=== PATIENT | female | born 1940 | race Caucasian/White ===

== ENCOUNTER 2020-03-29 06:08 | Outpatient (CLI) | payer MEDICARE, OTHER ==
[~2020-03-29] VITALS: Ht 160 cm; Wt 77.2 kg
== END 2020-03-30 10:01 | disposition home or self-care (01) ==
LOC: PREOP 06:08
PROVIDERS: ATTEND Specialist
DX: Z01.818 Encounter for other preprocedural examination (principal)

== ENCOUNTER 2020-03-31 07:42 | Day surgery (SDC) | payer MEDICARE, OTHER ==
[~2020-03-31] VITALS: Ht 160 cm; Wt 77.2 kg
[2020-03-31 08:05] VITALS: BP 174/106
[2020-03-31] MEDS: TETRACAINE 0.5% OPHTH SOLN 4 ML BTL (SINGLE DOSE ONLY) OU PRN ×4 (08:13→08:40)
[2020-03-31] MEDS ORDERED: POVIDONE (BETADINE) OPHTH SOLN 5% 30 ML OP ONE (08:15)
[2020-03-31] MEDS ORDERED: MOXIFLOXACIN OPHTH SOLN 5 MG/ML 0.3 ML SYRINGE OP ONE (08:15)
[2020-03-31] MEDS ORDERED: TIMOLOL MALEATE 0.5% 5 ML (TIMOPTIC) BTL OU PRN (08:15)
[2020-03-31] MEDS ORDERED: LIDOCAINE PF 1% 2 ML VIAL IR PRN (08:15)
[2020-03-31] MEDS: PHENYLEPHRINE 10% OPHTH (NEO-SYN) 5 ML BTL OU SCH ×3 (08:23→08:40)
[2020-03-31] MEDS: CYCLOPENTOLATE 1% (CYCLOGYL) 2 ML DROPS OP SCH ×3 (08:23→08:40)
[2020-03-31] MEDS ORDERED: MIDAZOLAM 2 MG/2 ML (VERSED) VIAL ONE (08:57)
--- NOTE | 2020-03-31 09:09 | Ophthalmologist Pre-Op Note ---
Pre-Operative Progress Note H&P Reviewed The H&P was reviewed, patient examined and no changes noted. Date H&P Reviewed: Mar 31, 2020 Time H&P Reviewed: 09:09 Pre-Op Dx Cataract, Left Eye TERESE JESUS MD Mar 31, 2020 09:09
[2020-03-31] MEDS ORDERED: acetaZOLAMIDE ER 500 MG CAP (DIAMOX SEQUELS) PO ONE (09:30)
--- NOTE | 2020-03-31 09:36 | Ophthalmology Operative Report ---
Cataract removal/placement IOL PREOPERATIVE DIAGNOSIS: Cataract Left Eye POSTOPERATIVE DIAGNOSIS: Cataract Left Eye PROCEDURE: Cataract removal and placement of posterior chamber implant, left eye SURGEON: Nathaniel Jesus ANESTHESIA: Topical with sedation COMPLICATIONS: None ESTIMATED BLOOD LOSS: Minimal DESCRIPTION OF PROCEDURE: After proper informed consent was obtained, the patient, a 79 female, was taken to the Operating Room and the left eye was anesthetized with tetracaine. The left eye was then prepped and draped in the usual manner. A wire lid speculum was placed. A paracentesis was made at the left hand position. Preservative free lidocaine was injected into the anterior chamber followed by viscoelastic. A clear corneal incision was made in the temporal position. A capsulorrhexis was preformed and the central nuclear and cortical material were removed. The posterior capsule was polished and an Kaleb 24.0 AU00T0 was placed into the capsular bag. The residual viscoelastic was aspirated and balanced saline solution was injected into the anterior chamber. Moxifloxacin was injected into the anterior chamber. The wound was checked and found to be water tight. The patient tolerated the procedure well without complications. NATHANIEL JESUS MD Mar 31, 2020 09:36
[2020-03-31 09:45] VITALS: BP 162/67
--- NOTE | 2020-03-31 14:26 | Anesthesia-General Post-Op ---
MAC Patient Condition Mental Status/LOC: Same as Preop Cardiovascular: Satisfactory Nausea/Vomiting: Absent Respiratory: Satisfactory Pain: Controlled Complications: Absent Post Op Complications Complications None Follow Up Care/Instructions Patient Instructions None needed. Anesthesiology Discharge Order Discharge Order Patient was seen this morning after the procedure and she was doing well, no complaints, stable vital signs, no apparent adverse anesthesia problems. SHARAN GUEVARA DO Mar 31, 2020 14:26
== END 2020-03-31 09:45 | disposition home or self-care (01) ==
LOC: SDC 07:42
PROVIDERS: ATTEND Specialist
DX: H25.12 Age-related nuclear cataract, left eye (principal); Z80.1 Family history of malignant neoplasm of trachea, bronchus and lung; Z90.710 Acquired absence of both cervix and uterus

== ENCOUNTER 2020-04-05 05:44 | Outpatient (CLI) | payer MEDICARE, OTHER | END 2020-04-05 12:44 | LOC: PREOP 05:44 | PROVIDERS: ATTEND Specialist | DX: Z01.818 Encounter for other preprocedural examination (principal) ==

== ENCOUNTER 2020-04-07 08:00 | Day surgery (SDC) | payer MEDICARE, OTHER ==
[~2020-04-07] VITALS: Ht 160 cm; Wt 77.3 kg
[2020-04-07 08:12] VITALS: BP 162/68
[2020-04-07] MEDS ORDERED: POVIDONE (BETADINE) OPHTH SOLN 5% 30 ML OP ONE (08:15)
[2020-04-07] MEDS ORDERED: MOXIFLOXACIN OPHTH SOLN 5 MG/ML 0.3 ML SYRINGE OP ONE (08:15)
[2020-04-07] MEDS ORDERED: TIMOLOL MALEATE 0.5% 5 ML (TIMOPTIC) BTL OU PRN (08:15)
[2020-04-07] MEDS ORDERED: LIDOCAINE PF 1% 2 ML VIAL IR PRN (08:15)
[2020-04-07] MEDS: TETRACAINE 0.5% OPHTH SOLN 4 ML BTL (SINGLE DOSE ONLY) OU PRN ×4 (08:21→08:37)
[2020-04-07] MEDS: PHENYLEPHRINE 10% OPHTH (NEO-SYN) 5 ML BTL OU SCH ×3 (08:27→08:37)
[2020-04-07] MEDS: CYCLOPENTOLATE 1% (CYCLOGYL) 2 ML DROPS OP SCH ×3 (08:27→08:37)
--- NOTE | 2020-04-07 09:03 | Ophthalmologist Pre-Op Note ---
Pre-Operative Progress Note H&P Reviewed The H&P was reviewed, patient examined and no changes noted. Date H&P Reviewed: Apr 07, 2020 Time H&P Reviewed: 09:03 Pre-Op Dx Cataract, Right Eye TERESE JESUS MD Apr 07, 2020 09:03
[2020-04-07] MEDS ORDERED: MIDAZOLAM 2 MG/2 ML (VERSED) VIAL ONE (09:05)
--- NOTE | 2020-04-07 09:25 | Ophthalmology Operative Report ---
Cataract removal/placement IOL PREOPERATIVE DIAGNOSIS: Cataract Right Eye POSTOPERATIVE DIAGNOSIS: Cataract Right Eye PROCEDURE: Cataract removal and placement of posterior chamber implant, right eye SURGEON: Nathaniel Jesus ANESTHESIA: Topical with sedation COMPLICATIONS: None ESTIMATED BLOOD LOSS: Minimal DESCRIPTION OF PROCEDURE: After proper informed consent was obtained, the patient, a 79 female, was taken to the Operating Room and the right eye was anesthetized with tetracaine. The right eye was then prepped and draped in the usual manner. A wire lid speculum was placed. A paracentesis was made at the left hand position. Preservative free lidocaine was injected into the anterior chamber followed by viscoelastic. A clear corneal incision was made in the temporal position. A capsulorrhexis was preformed and the central nuclear and cortical material were removed. The posterior capsule was polished and Kaleb 23.5 AU00T0 IOL was placed into the capsular bag. The residual viscoelastic was aspirated and balanced saline solution was injected into the anterior chamber. Moxifloxacin was injected into the anterior chamber. The wound was checked and found to be water tight. The patient tolerated the procedure well without complications. NATHANIEL JESUS MD Apr 07, 2020 09:25
[2020-04-07] MEDS ORDERED: acetaZOLAMIDE ER 500 MG CAP (DIAMOX SEQUELS) PO ONE (09:30)
[2020-04-07 09:35] VITALS: BP 169/69
--- NOTE | 2020-04-07 10:46 | Anesthesia-General Post-Op ---
MAC Patient Condition Mental Status/LOC: Same as Preop Cardiovascular: Satisfactory Nausea/Vomiting: Absent Respiratory: Satisfactory Pain: Controlled Complications: Absent Post Op Complications Complications None Follow Up Care/Instructions Patient Instructions None needed. Anesthesiology Discharge Order Discharge Order Patient is doing well, no complaints, stable vital signs, no apparent adverse anesthesia problems. No complications reported per nursing. CAMERON FOSTER CRNA Apr 07, 2020 10:46
== END 2020-04-07 09:40 | disposition home or self-care (01) ==
LOC: SDC 08:00
PROVIDERS: ATTEND Specialist
DX: H25.11 Age-related nuclear cataract, right eye (principal)
CPT/HCPCS: 66984; V2632

== ENCOUNTER 2020-04-10 10:05 | Emergency (ER) | payer MEDICARE, OTHER ==
[~2020-04-10] VITALS: Ht 160 cm; Wt 74.8 kg
[2020-04-10 10:20] VITALS: BP 144/66
[2020-04-10] MEDS ORDERED: PRD20T PO (10:46)
--- NOTE | 2020-04-10 10:46 | ED Integumentary General ---
General Chief Complaint: Skin/Wound Problems Stated Complaint: POISON GERDA Source: patient Exam Limitations: no limitations History of Present Illness Date Seen by Provider: Apr 10, 2020 Time Seen by Provider: 10:30 Initial Comments The patient since ER by private conveyance with chief complaint since Friday, 2 days ago she started having some itching poison gerda on her right neck face and oriental orthodox. She is not having any involvement and her tongue throat or difficulty breathing or swallowing secretions. She has not started anything except for topicals. Allergies and Home Medications Allergies Coded Allergies: No Known Drug Allergies (Unverified , 03/30/20) Home Medications No Active Prescriptions or Reported Meds Patient Home Medication List Home Medication List Reviewed: Yes Review of Systems Review of Systems Constitutional: No chills, No diaphoresis EENTM: No ear discharge, No ear pain Respiratory: No cough, No short of breath Cardiovascular: No chest pain, No edema Gastrointestinal: No abdominal pain, No nausea, No vomiting Genitourinary: No discharge, No dysuria Musculoskeletal: No back pain, No joint pain Skin: see HPI All Other Systems Reviewed Negative Unless Noted: Yes Past Bsevikq-Rtlsic-Kgiklp Hx Patient Social History Alcohol Use: Denies Use Recreational Drug Use: No Smoking Status: Never a Smoker Physical Exam Vital Signs Capillary Refill : General Appearance: WD/WN, no apparent distress HEENT: PERRL/EOMI, TMs normal, other (pinna is mildly erythematous and involved. Canal not involved.) Neck: non-tender, full range of motion, supple, normal inspection Cardiovascular: normal peripheral pulses, regular rate, rhythm Skin: rash (erythematous, pruritic rash over the right anterior neck or jawline and oriental orthodox) Progress/Results/Core Measures Progress Progress Note : Time: 10:42 Progress Note Offered IM versus by mouth and she would prefer the prednisone. Departure Impression Primary Impression: Contact dermatitis due to poison gerda Disposition: HOME, SELF-CARE Condition: Stable Departure-Patient Inst. Decision time for Depature: 10:43 Referrals: ALEXIS FLOYD DO (PCP/Family) Primary Care Physician Patient Instructions: Poison Gerda, Poison Clive, Poison [place]ac (DC) Add. Discharge Instructions: Clean the surfaces of your Vehicle, house as well as her close to remove the oils. Use calamine lotion topically away from your eyes and mouth as necessary to reduce itching. Claritin 10 mg daily for itching. Benadryl one tablet every 8 hours as necessary for intense breakthrough itching. Prednisone 2 tablets daily for the next 5 days to reduce rash. All discharge instructions reviewed with patient and/or family. Voiced understanding. Scripts Prednisone (Prednisone) 20 Mg Tab 40 MG PO DAILY for 5 Days, #10 TAB 0 Refills Prov: ALE HERNÁNDEZ 04/10/20 ALE HERNÁNDEZ Apr 10, 2020 10:46
== END 2020-04-10 10:53 | disposition home or self-care (01) ==
LOC: EDUNIT# 10:05 → ER 10:06
DX: L23.7 Allergic contact dermatitis due to plants, except food (principal)
CPT/HCPCS: 99282